=== PATIENT | female | born 1985 | race Caucasian/White ===

== ENCOUNTER 2020-12-16 21:40 | Emergency (ER) | payer BC, SELFPAY ==
[2020-12-13 16:33] VITALS: BMI 18.4
[2020-12-16 21:41] VITALS: BP 104/66; PULSE 88; RESP 16; TEMP 36.6; O2SAT 100; BMI 20.8
--- NOTE | 2020-12-16 22:12 | EX.ED.DYSGE1 ---
HPI History of Present Illness Chief Complaint: Rash Informant: patient Narrative Narrative: Patient presents to the emergency department for the evaluation of rash. Patient states that she gets poison vicenta yearly. This rash started about 9 to 10 days ago. She states that she was started on a steroid which sounds like it could be Medrol. That was not effective and neither was numerous [id number] treatments. She states that she was started on prednisone 40 mg. 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 Patient has tried oatmeal baths multiple gmaa-jep-[id number] creams. She has been using the creams very frequently. She denies any new exposures or other medications. She has also tried some Benadryl. PFSH PFSH Home Medications prednisone 10 mg tablet 10 mg PO QDAY 12 Days #30 tab 12/13/20 [Rx Last Taken Unknown] Allergy/AdvReac Type Severity Reaction Status Date / Time No Known Allergies Allergy Verified 12/16/20 21:41 Social History (Updated 12/16/20 @ 22:[address] Victoriano Tamayo, DO) Smoking Status: Never smoker substance use type: does not use ROS ROS ED Constitutional Constitutional ED: Denies chills or weight loss Eyes Eyes: Denies change in vision or diplopia ENT ENT ED: Denies ear pain, rhinorrhea or sore throat Cardiovascular Cardiovascular: Denies chest pain, orthopnea, palpitations or racing heartbeat Respiratory/Chest Respiratory/Chest: Denies cough, dyspnea or orthopnea Gastrointestinal Gastrointestinal: Denies abdominal pain, diarrhea, nausea or vomiting Genitourinary Genitourinary ED: Denies dysuria, hematuria or urinary frequency Musculoskeletal Musculoskeletal: Denies arthralgias or myalgias Integumentary Reports rash and other Details: hives ; Denies abscess Neurologic Neurologic: Denies headache(s) or weakness Psychiatric Psychiatric: Denies anxiety, depression, suicidal ideation or suicidal thoughts Endocrine Endocrinology: Denies polydipsia, polyphagia or polyuria Allergic/Immunologic Allergic/Immunologic ED: Denies mouth swelling, tongue swelling or urticaria EXAM Physical Exam Const Vital Signs: 12/16/20 21:41 Temperature 97.9 F Temperature Source Temporal Pulse Rate 88 Respiratory Rate 16 Blood Pressure 104/66 Blood Pressure Mean 78 Pulse Ox 100 Oxygen Delivery Method Room Air Positive well nourished and well developed General Appearance ED: well developed HEENT Reports normocephalic, head/scalp atraumatic and moist mucous membranes Eyes PERRL and EOMs intact bilaterally Neck no lymphadenopathy, supple and no JVD Resp normal respiratory effort and clear to auscultation bilaterally Cardio regular rate, regular rhythm and no murmurs GI normal to inspection, nondistended, normoactive bowel sounds and non-tender Palpation: soft Back/Spine no CVA tenderness and normal ROM Extremity normal to inspection General Extremety ED: Negative for edema General Extremity: Negative for edema Neuro oriented x3 and CN's II-XII intact bilaterally Sensorium / Orientation: alert Motor Exam: strength 5/5 throughout Psych mental status grossly normal Mood & Affect: Negative for depressed or tearful Skin no wounds Skin Narrative: Patient has a rash consistent with rhus dermatitis arms and torso. She also appears to have some hives on the skin and neck. MDM MDM MDM Narrative Medical decision making narrative: Patient will be given a shot of Kenalog IM. She will also receive a dose of Benadryl IM. We will increase her steroids to 60 mg a day and taper it. Discharge Plan Triage Chief Complaint: Rash ED Provider: Victoriano Tamayo Dx/Rx/DC Orders Clinical Impression: Irritant contact dermatitis due to plant Instructions: ED Poison Vicenta Rash Prescriptions: No Action prednisone 10 mg tablet 10 mg PO QDAY 12 Days Qty: 30 RF: 0 Primary Care Provider: Care Physician,No Primary Referrals: Care Physician,No Primary [Primary Care Provider] - Activity Restrictions/Additional Instructions: Increase the prednisone to 60 mg/day for the next 4 days then 30 mg a day for 4 days. Disposition Disposition: Home, Self Care
[2020-12-16] MEDS: Triamcinolone Acetonide 40 MG/ML Vial 80 MG IM (22:37)
[2020-12-16] MEDS: DiphenhydrAMINE 50 MG/ML Syringe IM (22:41)
== END 2020-12-16 23:00 | disposition home or self-care (01) ==
LOC: ED 22:28
PROVIDERS: Emergency Provider Emergency Medicine
DX: L24.7 Irritant contact dermatitis due to plants, except food (principal)
CPT/HCPCS: 96372; 99282

== ENCOUNTER 2021-07-22 16:58 | Outpatient (CLI) | payer BC, SELFPAY ==
--- NOTE | 2021-07-22 17:00 | RAD_ITS ---
STUDY: X-RAY - RIGHT HAND, ATTENTION 1 FINGER REASON FOR EXAM: Female, 36 years old. right thumb crush inj TECHNIQUE: 3 view(s) of the finger were obtained. COMPARISON: None. FINDINGS: Normal metacarpal head. Normal metacarpophalangeal joint. Normal proximal phalanx. Normal middle phalanx. Normal distal phalanx. Normal proximal interphalangeal joint. Normal distal interphalangeal joint. RAD/Finger(s) Min 2 Views IMPRESSION: Normal x-ray examination of the finger. Electronically Signed: Gallo Vargas MD at 17:20 EST ,
== END 2021-07-22 23:59 | disposition home or self-care (01) ==
PROVIDERS: Referring Provider Physician Assistant Surgical; Visit Provider Physician Assistant Surgical
DX: S67.01XA Crushing injury of right thumb, initial encounter (principal)
CPT/HCPCS: 73140

== ENCOUNTER 2021-08-09 07:26 | Outpatient (CLI) | payer BC, SELFPAY ==
[2021-08-11 00:07] LABS: Chlamydia By Nucleic Acid AMP Negative (Negative)
[2021-08-11 18:37] LABS: Gonococcus By Nucleic Acid AMP Negative (Negative)
[2021-08-13 22:24] LABS: HPV APTIMA, High Risk Negative (Negative)
== END 2021-08-09 23:59 | disposition home or self-care (01) ==
LOC: LABSPEC 08-10 07:26
PROVIDERS: Referring Provider Obstetrics & Gynecology; Visit Provider Obstetrics & Gynecology
DX: N89.8 Other specified noninflammatory disorders of vagina (principal); Z12.4 Encounter for screening for malignant neoplasm of cervix
CPT/HCPCS: 87070; 87205; 87491; 87591; 87624; 88175; G0145

== ENCOUNTER 2021-09-16 10:45 | Day surgery (SDC) | payer BC, SELFPAY ==
[2021-09-15 10:10] LABS: Hematocrit 37.1 % (37-47); Hemoglobin 12.7 g/dL (12.0-15.0); Mean Corp Hgb Conc 34.2 g/dL (32-36); Mean Corpuscular Hgb 30.7 pg (27.0-32.0); Mean Corpuscular Volume 89.6 fL (81-99); Mean Platelet Vol. 9.9 fl (6.2-12.0); Platelet Count 168 K/mm3 (150-450); RBC Distribution Width CV 11.4 % (11.6-14.6); RBC Distribution Width SD 36.6 fl (35.1-43.9); Red Blood Count 4.14 M/mm3 (4.2-5.4); White Blood Count 3.8 K/mm3 (4.4-11.0)
--- NOTE | 2021-09-16 07:15 | HP.PCM_ITS ---
History and Physical Date of Admission: 09/16/21 MR#:[id number]:[id number]: BRITNI CAORep #:[id number] Provider:Dr. Evette Ahumada, DOAge/Sex: 36/F [facility] Int[facility] Vital Signs 09/05/21 08:11 Height 5 ft 6 in Weight: 131 lb 6 oz BMI 21.2 BP 100/60 Intake Visit Reasons: BS [facility] Required: No Is patient in pain?: No Allergies No Known Allergies Allergy (Verified 09/05/21 08:13) Medications lactobacillus combo no.11 15 billion cell sprinkle capsule 1 cap PO DAILY 08/09/21 [History Confirmed 09/05/21] Post menopausal: No Patient : No : No PFSH Surgical History S/P dilation and curettage Social History Smoking Status: Never smoker alcohol intake: never substance use type: does not use caffeine: Yes what type of physical activity do you participate in: none seatbelt use: always do you feel safe at home: Yes additional social history: Bennettfriend-David MARTINEZ BS Details: BRITNI CAO is a 36 year old who presents for a preop examination for bilateral salpingectomy, scheduled September 16 Pregancy History 4 Elective abortions Hx Para 2 Spontaneous abortions Hx # Term Pregnancies Ectopic pregnancies Hx # Pregnancies Multiple births # of living children 2 Past Pregnancies Del. Date Name GA/Weeks Outcome Route Bth Weight Gen Labor Lgth Anesthesia Del Locatn Provider FOB Unknown Brayllon Unknown Gabriel ROS Const ROS Unobtainable: All systems reviewed & are unremarkable except as noted in H Resp Resp: Reports system reviewed and no additional complaints, except as documented; Denies cough GI GI: Reports as per HPI Psych Psych: Reports system reviewed and no additional complaints, except as documented Exam Const General: cooperative, healthy appearing, comfortable and no acute distress Resp Effort & Inspection: normal respiratory effort Skin General: no rashes or lesions noted Psych Appearance: grossly normal Speech and Movement: speech and movement normal Coding Level of Care Code Off vis,est,level 3 Diagnoses Contraceptive management Z30.9 Assessment and Plan Assessment and Plan (1) Contraceptive management: Status: Acute Comment: plan for bilateral salpingectomy. Plan - Dr. Evette Ahumada DO: risks of regret and surgical risks vs benefits discussed today. return 2 weeks after surgery. UPDATE- I have seen the patient and performed any clinically relevant updates to the history and physical exam. Evette Ahumada DO
[2021-09-16 11:09] VITALS: BP 105/64; PULSE 76; RESP 16; TEMP 36.9; O2SAT 100; BMI 20.3
[2021-09-16 11:11] LABS: Internal QC Validated? YES +Cl - CLEAR BKGD; Pregnancy, Urine Negative Negative
[2021-09-16] MEDS: Lactated Ringers 1,000 ML 15 ML IV (11:34)
--- NOTE | 2021-09-16 12:25 | PCM.DC ---
Discharge Instructions Diet Discharge Diet: No restrictions Activity Discharge Activity: Return to Normal Activity, May Not Drive (for two weeks or while taking narcotic pain medications.), May Shower and May Take a Tub Bath (in 7 days) May resume sexual activity in: 1 week Weight Bearing Status: Full weight bearing Dressing / Incision Call your doctor if you observe: Using more than 1 pad per hour, Shortness of breath, Chest pain and Uncontrolled pain Suture Line Care: Avoid Pulling/Pushing and Avoid Pinching/Bending Remove Dressing in: 1 week (if present) Cleanse incision/area with: Soap & Water and Keep Dressing Clean & Dry Follow Up Care Please Follow Up With: Evette Ahumada DO When: Call to make an appointment with your doctor for a follow up incision check in 1-2 weeks. Test Results: Test results from this visit will be discussed in further detail at your follow-up appointment, if applicable. Discharge Plan Admission Primary Reason for Your Visit: fallopian tube removal procedure Attending Provider: Evette Ahumada Primary Care Provider: Care Physician,Sharri Primary Discharge Orders/Prescriptions Prescriptions: New ibuprofen 800 mg tablet 800 mg PO Q8H PRN (Reason: pain) 7 Days Qty: 30 RF: 0 oxycodone-acetaminophen [Percocet] 5-325 mg tablet 1 tab PO Q6H PRN (Reason: pain) 3 Days Qty: 8 RF: 0 Continued Probiotic 15 billion cell capsule, sprinkle 1 cap PO DAILY RF: 0 Referrals / Follow Up: Care Physician,No Primary [Primary Care Provider] - Disposition Disposition (needs filled in before D/C Order can be placed): Home, Self Care
--- NOTE | 2021-09-16 12:30 | FALS_PTH ---
PATIENT: BRITNI CAO LOC: [facility] [place] U#:[id number] AGE/SX: 36/F ROOM: RE09/16/[address]: Dr. Evette Ahumada DO : 1985 BED: DIS: 09/16/2021 SPEC #: [id number] RECD: 09/16/21 13:48 STATUS: JER KIKE #: [id number] JOHN: 09/16/21 12:[address]: Evette Ahumada DEPT: SURGICAL PATHOLOGY RECD BY: Rosalba Cox ENTERED: 09/19/21 08:07 SP TYPE: FALL TUBES OTHR DR: No Primary Care Phys Tissues: Fallopian tube Procedures: Surgery Specimen Level II HEADER OPERATION: Laparoscopic salpingectomy PRE-OP DIAGNOSIS: Sterilization TISSUE SUBMITTED: Bilateral fallopian tubes MICROSCOPIC DIAGNOSIS Right and left fallopian tubes, bilateral salpingectomies: Complete cross-sections of fallopian tubes with benign paratubal cyst. AM:heather 09/20/2021 MICROSCOPIC DESCRIPTION Slides are reviewed. GROSS DESCRIPTION Received in fixative is one container labeled with the patient's name and designated bilateral fallopian tubes. The specimen consists of bilateral fallopian tubes including fimbrial ends measuring 8 cm in length and 0.5 cm in diameter and 4.5 cm in length and 0.6 cm in diameter. The fallopian tubes are not identified as right or left. Sections reveal unremarkable cut surfaces. One of the fallopian tubes show a paratubal cyst measuring 0.5 cm in greatest dimension. Fusion Analyst sections are submitted in two cassettes as follows: 1 - one fallopian tube, 2 ? second fallopian tube and paratubal cyst. / SJ:heather 09/19/2021 TC:5 CPT: 95811 x2
--- NOTE | 2021-09-16 13:07 | PCM.OP.BLANK ---
Operative Report Date of Procedure: 09/16/21 preoperative diagnosis: desires permanent sterilization Postoperative diagnosis: Desires permanent sterilization Procedure: Laparoscopic bilateral salpingectomy Surgeon: Dr. Evette [employer]ed [employer] Laboratory Technician: Ivan Nuñez Estimated blood loss: 5 cc Urine output: 300 cc Fluids: 1300 cc Details of the procedure: Patient was brought to the operating room where general anesthesia was found to be adequate. She was prepped and draped in the normal sterile fashion her legs were placed in stirrups a weighted speculum was placed in the vagina. The anterior lip of the cervix was grasped with a single-tooth tenaculum. The uterus was sounded to 12 cm. A uterine manipulator was inserted without difficulty. The speculum was removed and gloves were changed. Attention was turned towards the abdomen. 0.75% Marcaine was injected into the umbilicus and a 5 mm incision was made with an 11 blade scalpel. A 5 mm trocar was inserted into the abdomen under direct visualization using the 5 mm laparoscope. A left lower quadrant 5 mm incision was also made followed by insertion of a 5 mm trocar. Approximately 5 cm above the pubic symphysis in the midline after Marcaine injection a mini grasper and was inserted into the abdomen under direct visualization. The uterus was elevated and manipulated to the right side the left fallopian tube was first grasped with a mini grasper and the underlying mesosalpinx was cauterized and cut to the level of the cornua using the LigaSure device. The fallopian tube was removed through the trocar. The same procedure was performed on the right side. both fallopian tubes were passed off for pathology analysis. Excellent hemostasis was noted at all operative sites. All instruments were removed from the abdomen and CO2 gas was escape from the abdomen. The skin was closed with a 4-0 Monocryl subcuticular stitch and sealed with surgical glue. The vaginal manipulator was removed and a vaginal sweep was performed no foreign objects were left in the vagina. The patient tolerated the procedure well sponge lap needle counts were correct x2 and she is now being brought to the recovery room in stable condition Complications: None Multi Select Codes Urinary/Genital Urinary/Genital CPT Codes: 46980 Laproscopic BS/O (laparoscopic bilateral salpingectomy)
[2021-09-16 13:28] VITALS: BP 112/72; PULSE 90; RESP 16; TEMP 36.2; O2SAT 100
[2021-09-16 13:30] VITALS: BP 105/71; PULSE 109; RESP 16; O2SAT 98
[2021-09-16 13:46] VITALS: BP 105/71; PULSE 100; RESP 16; O2SAT 97
[2021-09-16 14:00] VITALS: BP 107/70; PULSE 88; RESP 16; TEMP 36.3; O2SAT 99
[2021-09-16 15:10] VITALS: BP 112/59; PULSE 97; RESP 16; TEMP 36.6; O2SAT 97
== END 2021-09-16 15:15 | disposition home or self-care (01) ==
LOC: SDC 10:47 → AC 10:47
PROVIDERS: Referring Provider Obstetrics & Gynecology; Visit Provider Obstetrics & Gynecology
PROC: (CPT 58661; principal; 2021-09-16 12:15)
DX: Z30.2 Encounter for sterilization (principal); N83.8 Other noninflammatory disorders of ovary, fallopian tube and broad ligament
CPT/HCPCS: 58661; 00840; 36415; 81025; 85027; 86850; 86900; 86901; 87426; 88302; C9803; J7120; A4216; J2405